=== PATIENT | male | born 1965 | race Caucasian/White ===

== ENCOUNTER 2024-11-19 23:12 | Inpatient (IN) | payer OTHER ==
[~2024-11-19] VITALS: Ht 162.6 cm; Wt 67.6 kg
[~2024-11-19 23:12] MED LIST: ASCO500W7 GT; CHOL400D7 GT; ESCI5TAB GT; FURO20TA4 GT; GABA-1180 GT; HYDR-4001 MT; INSU100V43 SQ; METF-1150 GT; OMEP40CA20 GT; TAMS-54 GT
[2024-11-19 23:13] VITALS: O2SAT 95
[2024-11-19] MEDS: SODIUM CHLORIDE 0.9% (SEPSIS BOLUS) IV ONE (23:42)
[2024-11-19] MEDS: PIPERACILLIN/TAZO 3.375G/50ML 50 ML IV ONE (23:50)
[2024-11-19 23:53] LABS: BASOPHILS % 0.2 % (0.0-2.0); EOSINOPHILS % 0.1 % (0.0-5.0); HEMATOCRIT. 35.9 % (42.0-52.0); HEMOGLOBIN. 12.1 g/dL (14.0-18.0); LYMPHOCYTES % 7.1 % (20.0-50.0); MEAN PLATELET VOLUME 8.2 fl (7.4-10.4); MONOCYTES % 3.8 % (2.0-8.0); NEUTROPHILS % 88.8 % (40.0-76.0); PLATELET 311 x1000/uL (130-400); RED BLOOD CELL COUNT 4.06 mill/uL (4.7-6.1); RED CELL DISTRIBUTION WIDTH 14.2 % (11.6-14.6)
[2024-11-19] MEDS: KETOROLAC 15MG/ML VIAL IV ONE (23:57)
[2024-11-19 23:59] LABS: CREATININE 0.6 mg/dL (0.6-1.3); UREA NITROGEN BLOOD 29 mg/dL (9-23)
[2024-11-20] LABS: ETHANOL BLOOD < 10 mg/dL (<10); TROPONIN I HIGH SENSITIVITY < 4 ng/L (3.0-53)
[2024-11-20 00:01] LABS: ASPARTATE AMINOTRANSFERASE 23 IU/L (<34); BILIRUBIN DIRECT 0.1 mg/dL (<=3.0); BILIRUBIN TOTAL 0.5 mg/dL (0.1-1.0); INR 1.0; PROTEIN TOTAL 7.0 g/dL (6.0-8.3)
[2024-11-20 00:06] LABS: BG BASE EXCESS 3.1 mmol/L (-2.0-3.0); BG CARBOXYHEMOGLOBIN 1.0 % (0.5-1.5); BG DEOXYHEMOGLOBIN 1.7 % (0.0-5.0); BG HCO3 ACT 25.7 mmol/L (21.0-28.0); BG METHEMOGLOBIN 0.3 % (0.5-1.5); BG OXYGEN SATURATION 98.3 % (94.0-98.0); BG OXYHEMOGLOBIN 97.0 % (94.0-98.0); BG PCO2 33.2 mmHg (35.0-48.0); BG PH 7.506 (7.350-7.450); BG PO2 102.4 mmHg (83.0-108.0); BG SAMPLE SITE RIGHT RADIAL; BG TOTAL HEMOGLOBIN 14.1 g/dL (13.5-17.5); BG VENT MODE MASK - NRB
[2024-11-20] MEDS: VANCOMYCIN 1G PREMIX 200 ML IV ONE (00:17)
[2024-11-20 00:43] LABS: CLARITY URINE CLEAR (CLEAR); COLOR URINE YELLOW (YELLOW); GLUCOSE URINE 3+ (NEGATIVE); KETONES URINE TRACE (NEGATIVE); LEUKOCYTE ESTERASE URINE NEGATIVE (NEGATIVE); NITRITE URINE NEGATIVE (NEGATIVE); OCCULT BLOOD URINE 2+ (NEGATIVE); PH URINE 6.0 (4.5-8.0); PROTEIN URINE 1+ (NEGATIVE); SPECIFIC GRAVITY URINE 1.030 (1.005-1.030); UROBILINOGEN URINE 1.0 E.U./dL (0.2-1.0)
[2024-11-20 00:45] LABS: *AMPHETAMINES SCREEN URINE NEGATIVE (NEGATIVE); *BARBITURATES SCREEN URINE NEGATIVE (NEGATIVE); *BENZODIAZEPINES SCREEN URINE NEGATIVE (NEGATIVE); *COCAINE SCREEN URINE NEGATIVE (NEGATIVE); METHADONE URINE SCREEN NEGATIVE (NEGATIVE)
[2024-11-20 00:46] LABS: CANNABINOID URINE SCREEN NEGATIVE (NEGATIVE); ECSTASY MDMA SCREEN URINE NEGATIVE (NEGATIVE); OPIATES URINE SCREEN NEGATIVE (NEGATIVE); PHENCYCLIDINE URINE SCREEN NEGATIVE (NEGATIVE)
[2024-11-20 00:55] LABS: BACTERIA URINE TRACE; SQUAMOUS EPITHELIAL CELL URINE FEW /lpf (RARE/1+); WBC URINE 0-2 /hpf (0-2)
[2024-11-20] MEDS ORDERED: GUAIFENESIN 200MG/10ML SUGAR FREE UDC PO PRN (02:00)
[2024-11-20] MEDS: DEXT 5%/0.45% NACL 1000ML 1,000 ML IV SCH (02:00)
[2024-11-20] MEDS ORDERED: DOCUSATE SODIUM 100MG CAPSULE PO PRN (02:00)
[2024-11-20] MEDS ORDERED: LORAZEPAM 0.5MG TABLET PO PRN (02:00)
[2024-11-20] MEDS ORDERED: DEXTROSE 50% WATER 50ML SYRINGE IV PRN ×2 (02:00→06:00)
[2024-11-20] MEDS ORDERED: ONDANSETRON HCL 4MG/2ML INJ IV PRN (02:00)
[2024-11-20] MEDS ORDERED: IPRATROPIUM/ALBUTEROL 0.5-3(2.5)MG/3ML NEB HHN PRN (02:00)
[2024-11-20 03:30] VITALS: BP 125/80; PULSE 108; RESP 20; TEMP 36.5848
[2024-11-20] MEDS ORDERED: LANC-502 (03:32)
[2024-11-20] MEDS ORDERED: INSLIS SUBCUT (03:32)
[2024-11-20] MEDS ORDERED: INSU100I53 SUBCUT (03:32)
[2024-11-20] MEDS ORDERED: BLOO-1823 (03:32)
[2024-11-20] MEDS ORDERED: METF500S9 (03:32)
[2024-11-20] MEDS ORDERED: GABA250S6 (03:32)
[2024-11-20] MEDS ORDERED: ESCI5TAB16 PO (03:32)
[2024-11-20] MEDS ORDERED: FURO10SO (03:32)
[2024-11-20 04:00] VITALS: BP 147/92; PULSE 100; RESP 20; TEMP 36.5; O2SAT 98
[2024-11-20] MEDS: VANCOMYCIN 750 MG IV SCH (04:52)
[2024-11-20] MEDS: INSULIN LISPRO 100 UNITS/ML SUBCUT SCH ×3 (06:00→17:43)
[2024-11-20] MEDS: BLOOD SUGAR DIAGNOSTIC STRIP TEST SCH (06:26)
[2024-11-20 06:35] LABS: UREA NITROGEN BLOOD 23 mg/dL (9-23)
[2024-11-20 07:04] LABS: BASOPHILS % 0.0 % (0.0-2.0); EOSINOPHILS % 0.0 % (0.0-5.0); HEMATOCRIT. 33.0 % (42.0-52.0); HEMOGLOBIN. 11.2 g/dL (14.0-18.0); LYMPHOCYTES % 7.1 % (20.0-50.0); MEAN PLATELET VOLUME 7.9 fl (7.4-10.4); MONOCYTES % 5.3 % (2.0-8.0); NEUTROPHILS % 87.6 % (40.0-76.0); PLATELET 239 x1000/uL (130-400); RED BLOOD CELL COUNT 3.73 mill/uL (4.7-6.1); RED CELL DISTRIBUTION WIDTH 14.0 % (11.6-14.6)
[2024-11-20 07:09] LABS: CREATININE 0.4 mg/dL (0.6-1.3)
[2024-11-20 08:00] VITALS: BP 116/71; PULSE 106; RESP 20; TEMP 36.4; O2SAT 67
[2024-11-20] MEDS: PIPERACILLIN/TAZO 3.375G/50ML 50 ML IV SCH (08:14)
[2024-11-20] MEDS: SODIUM CHLORIDE 0.45% 1,000 ML IV ONE (09:51)
[2024-11-20] MEDS: AZITHROMYCIN 500MG/250ML 250 ML IV SCH (09:52)
[2024-11-20] MEDS: VANCOMYCIN 1.25GM/250ML IV SCH (09:52)
[2024-11-20] MEDS: ENOXAPARIN 40MG/0.4ML SYR SUBCUT SCH (09:52)
[2024-11-20] MEDS: KCL 20MEQ/100ML PREMIX 100 ML IV SCH (10:43)
[2024-11-20] MEDS: VANCOMYCIN 1GM/200ML PMX (BAXTER) IV SCH (11:28)
[2024-11-20 12:00] VITALS: BP 94/51; PULSE 114; RESP 22; TEMP 36.9; O2SAT 96
[2024-11-20 16:00] VITALS: BP 94/53; PULSE 100; RESP 18; TEMP 36.8; O2SAT 96
[2024-11-20 20:00] VITALS: BP 115/67; PULSE 100; RESP 18; TEMP 36.7; O2SAT 98
[2024-11-21] VITALS: BP 120/89; PULSE 97; RESP 18; TEMP 36.6; O2SAT 97
[2024-11-21 04:00] VITALS: BP 143/89; PULSE 95; RESP 20; TEMP 36.4; O2SAT 95
[2024-11-21 06:24] LABS: PLATELET 237 x1000/uL (130-400); RED BLOOD CELL COUNT 3.52 mill/uL (4.7-6.1); RED CELL DISTRIBUTION WIDTH 14.1 % (11.6-14.6)
[2024-11-21 06:39] LABS: CREATININE 0.7 mg/dL (0.6-1.3); UREA NITROGEN BLOOD 24 mg/dL (9-23)
[2024-11-21 08:00] VITALS: BP 144/91; PULSE 105; RESP 18; TEMP 37; O2SAT 97
[2024-11-21 12:00] VITALS: BP 139/86; PULSE 98; RESP 18; TEMP 36.9; O2SAT 95
[2024-11-21 16:00] VITALS: BP 111/77; PULSE 114; RESP 20; TEMP 36.1; O2SAT 95
[2024-11-21 20:35] VITALS: BP 118/78; PULSE 113; RESP 18; TEMP 36.9; O2SAT 100
[2024-11-22 00:46] VITALS: BP 134/90; PULSE 104; RESP 19; TEMP 36.4; O2SAT 92
[2024-11-22 04:00] VITALS: BP 152/104; PULSE 113; RESP 20; TEMP 36.7; O2SAT 90
[2024-11-22] MEDS: CLONIDINE 0.1MG TABLET PO PRN (04:40)
[2024-11-22] MEDS ORDERED: IPRATROPIUM/ALBUTEROL 0.5-3(2.5)MG/3ML NEB HHN PRN (05:00)
[2024-11-22 07:27] LABS: HEMATOCRIT. 30.8 % (42.0-52.0); HEMOGLOBIN. 10.4 g/dL (14.0-18.0); MEAN PLATELET VOLUME 8.1 fl (7.4-10.4); PLATELET 286 x1000/uL (130-400); RED BLOOD CELL COUNT 3.49 mill/uL (4.7-6.1); RED CELL DISTRIBUTION WIDTH 13.8 % (11.6-14.6)
[2024-11-22 07:44] LABS: CREATININE 0.9 mg/dL (0.6-1.3); UREA NITROGEN BLOOD 26 mg/dL (9-23)
[2024-11-22 07:52] VITALS: BP 106/69; PULSE 110; RESP 18; TEMP 36.1; O2SAT 93
[2024-11-22] MEDS ORDERED: POTASSIUM CHLORIDE 20MEQ TABLET SR PO SCH (11:00)
[2024-11-22] MEDS: POTASSIUM CHLORIDE 20MEQ/PACKET PO SCH (11:17)
[2024-11-22] MEDS: INSULIN GLARGINE 100 UNITS/ML SUBCUT SCH ×2 (11:21→21:18)
[2024-11-22] MEDS ORDERED: MEDICATION NOT ON FORMULARY EA (Escitalopram Oxalate 1 TAB) PO SCH (11:30)
[2024-11-22 12:00] VITALS: BP 135/91; PULSE 100; RESP 18; TEMP 36.5; O2SAT 96
[2024-11-22] MEDS: INSULIN LISPRO 100 UNITS/ML SUBCUT SCH (12:24)
[2024-11-22] MEDS: GABAPENTIN SOLN 300MG/6ML UDC GT SCH (13:44)
[2024-11-22 16:00] VITALS: BP 115/79; PULSE 103; RESP 17; TEMP 36.7; O2SAT 95
[2024-11-22 17:44] LABS: LYMPHOCYTES % MANUAL 11.0 % (20.0-50.0); MONOCYTES % MANUAL 2.0 % (2.0-8.0); NEUTROPHILS % MANUAL 87.0 % (45.0-75.0); PLATELET ESTIMATE NORMAL
[2024-11-22 20:00] VITALS: BP 122/84; PULSE 96; RESP 19; TEMP 38; O2SAT 100
[2024-11-22] MEDS: VANCOMYCIN 750MG/150ML (BAXTER) IV SCH (21:18)
[2024-11-22] MEDS: ACETAMINOPHEN 325MG TABLET PO PRN (22:29)
[2024-11-23] VITALS: BP 108/76; PULSE 85; RESP 19; TEMP 37.4; O2SAT 96
[2024-11-23 00:27] LABS: INFLUENZA TYPE A Presumptive Negative (Pres. Neg.); INFLUENZA TYPE B Presumptive Negative (Pres. Neg.); RESPIRATORY SYNCYTIAL VIRUS Not Detected (Not Detectd)
[2024-11-23 04:00] VITALS: BP 118/84; PULSE 92; RESP 20; TEMP 36.9; O2SAT 95
[2024-11-23 08:00] VITALS: BP 135/89; PULSE 99; RESP 18; TEMP 37.3; O2SAT 94
[2024-11-23] MEDS: CITALOPRAM HYDROBROMIDE 10MG TABLET PO SCH (08:24)
[2024-11-23 12:00] VITALS: BP 116/82; PULSE 102; RESP 18; TEMP 37.2; O2SAT 94
[2024-11-23 16:00] VITALS: BP 114/77; PULSE 101; RESP 18; TEMP 37.5; O2SAT 95
[2024-11-23 20:00] VITALS: BP 119/72; PULSE 108; RESP 20; TEMP 39.2; O2SAT 98
[2024-11-23] MEDS: ACETAMINOPHEN 325MG TABLET PO PRN (21:09)
[2024-11-24] VITALS: BP 105/67; PULSE 105; RESP 18; TEMP 36.2; O2SAT 100
[2024-11-24 04:00] VITALS: BP 97/68; PULSE 100; RESP 20; TEMP 36.4; O2SAT 98
[2024-11-24 06:24] LABS: CREATININE 0.9 mg/dL (0.6-1.3)
[2024-11-24 06:25] LABS: UREA NITROGEN BLOOD 30 mg/dL (9-23)
[2024-11-24 08:47] VITALS: BP 104/69; PULSE 107; RESP 17; TEMP 36.6; O2SAT 96
[2024-11-24] MEDS: POTASSIUM CHLORIDE 20MEQ TABLET SR PO SCH (10:15)
[2024-11-24] MEDS: DEXT 5% WATER + KCL 20MEQ/L 1,000 ML IV SCH (11:29)
[2024-11-24] MEDS: POTASSIUM CHLORIDE 20MEQ/PACKET PO SCH ×2 (11:29→16:30)
[2024-11-24 12:00] VITALS: BP 104/66; PULSE 80; RESP 18; TEMP 37.4; O2SAT 95
[2024-11-24 13:54] LABS: CREATININE 0.9 mg/dL (0.6-1.3); UREA NITROGEN BLOOD 31 mg/dL (9-23)
[2024-11-24] MEDS: VANCOMYCIN 1.25GM/250ML 250 ML IV SCH (14:09)
[2024-11-24 16:48] VITALS: BP 108/74; PULSE 115; TEMP 36.5
[2024-11-24 20:00] VITALS: BP 100/69; PULSE 90; RESP 17; TEMP 37.1; O2SAT 95
[2024-11-24] MEDS ORDERED: MELATONIN 3MG TABLET PO SCH (22:45)
[2024-11-25] VITALS: BP 112/74; PULSE 99; RESP 17; TEMP 36.6; O2SAT 96
[2024-11-25 04:00] VITALS: BP 136/88; PULSE 93; RESP 17; TEMP 37.1; O2SAT 96
[2024-11-25 07:33] LABS: BASOPHILS % 0.2 % (0.0-2.0); EOSINOPHILS % 0.4 % (0.0-5.0); HEMATOCRIT. 26.9 % (42.0-52.0); HEMOGLOBIN. 9.1 g/dL (14.0-18.0); LYMPHOCYTES % 11.4 % (20.0-50.0); MEAN PLATELET VOLUME 8.4 fl (7.4-10.4); MONOCYTES % 7.8 % (2.0-8.0); NEUTROPHILS % 80.2 % (40.0-76.0); PLATELET 261 x1000/uL (130-400); RED BLOOD CELL COUNT 2.99 mill/uL (4.7-6.1); RED CELL DISTRIBUTION WIDTH 13.2 % (11.6-14.6)
[2024-11-25 08:00] VITALS: BP 141/95; PULSE 96; RESP 20; TEMP 36.8; O2SAT 95
[2024-11-25 12:00] VITALS: BP 127/87; PULSE 100; RESP 20; TEMP 36.9; O2SAT 96
[2024-11-25 16:00] VITALS: BP 126/87; PULSE 98; RESP 18; TEMP 36.9; O2SAT 97
[2024-11-25 20:00] VITALS: BP 113/80; PULSE 101; RESP 19; TEMP 37.5; O2SAT 95
[2024-11-25] MEDS: INSULIN GLARGINE 100 UNITS/ML SUBCUT SCH (21:55)
[2024-11-26] VITALS: BP 117/78; PULSE 106; RESP 20; TEMP 37.1; O2SAT 94
[2024-11-26 04:00] VITALS: BP 116/77; PULSE 104; RESP 20; TEMP 36.9; O2SAT 95
[2024-11-26 08:00] VITALS: BP 165/64; PULSE 72; RESP 15; TEMP 37.2; O2SAT 93
[2024-11-26 12:00] VITALS: BP 109/74; PULSE 109; RESP 16; TEMP 37.6; O2SAT 91
[2024-11-26 16:00] VITALS: BP 112/74; PULSE 119; RESP 15; TEMP 37.9; O2SAT 90; O2SAT 92
[2024-11-26 20:00] VITALS: BP 104/83; PULSE 62; RESP 20; TEMP 38.2; O2SAT 96
[2024-11-26] MEDS: PIPERACILLIN/TAZO 3.375G/50ML 50 ML IV SCH (21:19)
[2024-11-27] VITALS: BP 101/69; PULSE 102; RESP 21; TEMP 37.1; O2SAT 92
[2024-11-27 04:00] VITALS: BP 118/82; PULSE 91; RESP 22; TEMP 36.7; O2SAT 95
[2024-11-27 08:07] VITALS: BP 132/92; PULSE 66; RESP 20; TEMP 36.3; O2SAT 98
[2024-11-27] MEDS: PANTOPRAZOLE SODIUM 40 MG/VIAL IV NR (11:45)
[2024-11-27 12:05] VITALS: BP 129/90; PULSE 89; RESP 20; TEMP 36.1; O2SAT 98
[2024-11-27 16:13] VITALS: BP 134/88; PULSE 90; RESP 20; TEMP 36.2; O2SAT 94
[2024-11-27 20:39] VITALS: BP 112/70; PULSE 56; RESP 16; TEMP 36.4; O2SAT 96
[2024-11-27] MEDS: PANTOPRAZOLE SODIUM 40 MG/VIAL IV SCH (20:43)
[2024-11-28] VITALS: BP 106/73; PULSE 85; RESP 20; TEMP 36.4; O2SAT 94
[2024-11-28 04:00] VITALS: BP 126/87; PULSE 97; RESP 19; TEMP 36.4; O2SAT 99
[2024-11-28 06:22] LABS: CREATININE 0.6 mg/dL (0.6-1.3)
[2024-11-28 06:23] LABS: UREA NITROGEN BLOOD 20 mg/dL (9-23)
[2024-11-28 06:24] LABS: PHOSPHORUS 2.6 mg/dL (2.5-4.9)
[2024-11-28 06:25] LABS: FOLIC ACID (FOLATE) SERUM 10.34 ng/mL (>5.38)
[2024-11-28 06:26] LABS: HEMATOCRIT. 30.0 % (42.0-52.0); HEMOGLOBIN. 10.0 g/dL (14.0-18.0); MEAN PLATELET VOLUME 8.9 fl (7.4-10.4); PLATELET 333 x1000/uL (130-400); RED BLOOD CELL COUNT 3.40 mill/uL (4.7-6.1); RED CELL DISTRIBUTION WIDTH 13.5 % (11.6-14.6); VITAMIN B12 SERUM 1121 pg/mL (211-911)
[2024-11-28 08:09] VITALS: BP 118/81; PULSE 99; RESP 20; TEMP 36.4; O2SAT 97
[2024-11-28 12:06] VITALS: BP 124/83; PULSE 95; RESP 19; TEMP 36.6; O2SAT 99
[2024-11-28] MEDS ORDERED: DIATR MEGLU/DIATRIZOATE SOLN 30ML ONE (13:37)
[2024-11-28] MEDS ORDERED: NON FORMULARY MED XX SCH (14:30)
[2024-11-28] MEDS: IRON SUCROSE COMPLEX 100 MG/5 ML ML IV SCH (15:08)
[2024-11-28 16:22] VITALS: BP 112/77; PULSE 103; RESP 20; TEMP 36.6; O2SAT 98
[2024-11-28 20:29] VITALS: BP 105/74; PULSE 101; RESP 19; TEMP 36.4; O2SAT 91
[2024-11-28] MEDS: POTASSIUM CHLORIDE IV SCH (23:01)
[2024-11-28] MEDS: WATER IV SCH (23:01)
[2024-11-28] MEDS: DEXTROSE 5% IV SCH (23:01)
[2024-11-29] VITALS: BP 117/86; PULSE 96; RESP 19; TEMP 36.4; O2SAT 98
[2024-11-29 04:00] VITALS: BP 104/76; PULSE 89; RESP 16; TEMP 36.2; O2SAT 95
[2024-11-29 08:00] VITALS: BP 140/97; PULSE 96; RESP 20; TEMP 36.3; O2SAT 100
[2024-11-29 12:00] VITALS: BP 130/66; PULSE 78; RESP 18; TEMP 36.6; O2SAT 100
[2024-11-29 14:05] VITALS: BP 122/65; PULSE 79; RESP 18; TEMP 97
[2024-11-29 15:40] LABS: EOSINOPHILS % MANUAL 1.0 % (0.0-5.0); LYMPHOCYTES % MANUAL 3.0 % (20.0-50.0); NEUTROPHILS % MANUAL 96.0 % (45.0-75.0)
[2024-11-29 15:41] LABS: PLATELET ESTIMATE NORMAL
[2024-11-29 16:00] VITALS: BP 144/71; PULSE 89; RESP 20; TEMP 36.2; O2SAT 100
[2024-11-29 17:14] LABS: BASOPHILS % 0.2 % (0.0-2.0); EOSINOPHILS % 1.4 % (0.0-5.0); HEMATOCRIT. 28.5 % (42.0-52.0); HEMOGLOBIN. 9.7 g/dL (14.0-18.0); LYMPHOCYTES % 11.2 % (20.0-50.0); MEAN PLATELET VOLUME 8.2 fl (7.4-10.4); MONOCYTES % 3.1 % (2.0-8.0); NEUTROPHILS % 84.1 % (40.0-76.0); PLATELET 383 x1000/uL (130-400); RED BLOOD CELL COUNT 3.18 mill/uL (4.7-6.1); RED CELL DISTRIBUTION WIDTH 13.2 % (11.6-14.6)
== END 2024-11-29 17:05 | DRG 720 ==
LOC: ER 23:12 → 7WST 11-20 00:11 → EDBEDREQDT 11-20 00:13 → EDBEDREQ 11-20 00:13 → EDBEDREQTM 11-20 00:13
PROVIDERS: ADMIT Internal Medicine; ATTEND Internal Medicine
PROC: 0D20XUZ Change Feeding Device in Upper Intestinal Tract, External Approach (ICD-10-PCS; principal; 2024-11-28)
DX: A41.9 Sepsis, unspecified organism (principal); J96.00 Acute respiratory failure, unspecified whether with hypoxia or hypercapnia; R65.21 Severe sepsis with septic shock; G93.41 Metabolic encephalopathy; L89.153 Pressure ulcer of sacral region, stage 3; L89.313 Pressure ulcer of right buttock, stage 3; E87.20 Acidosis, unspecified; L89.323 Pressure ulcer of left buttock, stage 3; Z20.822 Contact with and (suspected) exposure to COVID-19; K94.23 Gastrostomy malfunction; R62.7 Adult failure to thrive; J44.0 Chronic obstructive pulmonary disease with (acute) lower respiratory infection; J18.9 Pneumonia, unspecified organism; I25.10 Atherosclerotic heart disease of native coronary artery without angina pectoris; Z74.01 Bed confinement status; R13.10 Dysphagia, unspecified; N40.0 Benign prostatic hyperplasia without lower urinary tract symptoms; D64.9 Anemia, unspecified; I10 Essential (primary) hypertension; Z89.512 Acquired absence of left leg below knee; Z68.25 Body mass index [BMI] 25.0-25.9, adult; Y83.8 Other surgical procedures as the cause of abnormal reaction of the patient, or of later complication, without mention of misadventure at the time of the procedure; Y92.89 Other specified places as the place of occurrence of the external cause
CPT/HCPCS: 36415; 36600; 71045; 74018; 80048; 80076; 80202; 80305; 80320; 81003; 82375; 82607; 82746; 82805; 82962; 83036; 83540; 83550; 83605; 83735; 83880; 84100; 84132; 84145; 84484; 85025; 85027; 85044; 87420; 87426; 87804; 93005; 94640; 99291; A4606; J0456; J1650; J1815; J1885; J2470; J2543; J3373; J3480; J7030; J7060; J7070; Q9963; G0480